=== PATIENT | female | born 1980 | race Caucasian/White ===

== ENCOUNTER 2018-02-06 18:05 | Emergency (ER) | payer OTHER ==
[~2018-02-06] VITALS: Ht 162.6 cm; Wt 68.0 kg
[2018-02-06] MEDS ORDERED: BOTOX INJECTION IM (18:20)
[2018-02-06] MEDS ORDERED: BIRTH CONTROL (18:20)
[2018-02-06] MEDS ORDERED: AIMOVIG AU70 MG/1 ML (18:21)
[2018-02-06 19:44] VITALS: BP 150/101
== END 2018-02-06 19:46 | disposition home or self-care (01) ==
LOC: M.ERS 18:05
DX: S16.1XXA Strain of muscle, fascia and tendon at neck level, initial encounter (principal); V89.2XXA Person injured in unspecified motor-vehicle accident, traffic, initial encounter; Y93.89 Activity, other specified; Y92.89 Other specified places as the place of occurrence of the external cause; Y99.8 Other external cause status